=== PATIENT | female | born 1945 | race Hispanic/Latino ===

== ENCOUNTER 2017-11-08 10:31 | Outpatient (CLI) | payer MEDICARE, OTHER ==
--- NOTE | 2017-11-08 16:32 | XRay Report ---
FINAL REPORT EXAM: XR KNEE BILAT 4+V HISTORY: BILATERAL KNEE PAIN TECHNIQUE: Four views both knees. PRIORS: None currently available. FINDINGS: RIGHT KNEE: Mild tricompartment space narrowing. Subchondral bone is intact. Minimal marginal osteophytes. Small joint effusion There is no acute dislocation. There is no acute fracture. There is no evidence for healing fracture. There is no cortical destruction to suggest osteomyelitis. There are no suspicious osseous lesions. There are no radiopaque foreign objects. LEFT KNEE: Asymmetrical tricompartment space narrowing. Subchondral sclerosis. Marginal osteophytes. Small joint effusion. Superior anterior patellar enthesophytes. There is no acute dislocation. There is no acute fracture. There is no evidence for healing fracture. There is no cortical destruction to suggest osteomyelitis. There are no suspicious osseous lesions. There are no radiopaque foreign objects. IMPRESSION: No acute osseous findings. Suspect developing osteoarthritis in the right knee. Mild osteoarthritis in the left knee. Small bilateral joint effusions.
== END 2017-11-08 10:32 | disposition home or self-care (01) ==
LOC: SPVIMAG 10:31
PROVIDERS: ATTEND Orthopaedic Surgery Sports Medicine
DX: M25.461 Effusion, right knee (principal); M25.462 Effusion, left knee